=== PATIENT | female | born 1990 | race Two or more races ===

== ENCOUNTER 2018-10-06 05:18 | Emergency (ER) | payer MEDICAID ==
[~2018-10-06] VITALS: Ht 157.5 cm; Wt 79.4 kg
[2018-10-06 06:35] LABS: Urine Bacteria FEW /hpf (None Seen); Urine Blood 1+ /uL (Negative); Urine Specific Gravity 1.027 (1.001-1.035); Urine WBC 11 /hpf (0 - 5)
[2018-10-06 07:32] VITALS: BP 126/76
== END 2018-10-06 07:39 | disposition home or self-care (01) ==
LOC: ER 05:18
DX: O23.43 Unspecified infection of urinary tract in pregnancy, third trimester (principal); O21.2 Late vomiting of pregnancy; Z3A.32 32 weeks gestation of pregnancy
CPT/HCPCS: 81001

== ENCOUNTER 2020-12-12 10:44 | Emergency (ER) | payer MEDICAID ==
[~2020-12-12] VITALS: Ht 157.5 cm; Wt 77.1 kg
[2020-12-12 10:46] VITALS: BP 142/83
== END 2020-12-12 12:18 | disposition home or self-care (01) ==
LOC: ER 10:44
DX: M25.461 Effusion, right knee (principal); W19.XXXA Unspecified fall, initial encounter; Y93.89 Activity, other specified; Y92.89 Other specified places as the place of occurrence of the external cause; Y99.8 Other external cause status
CPT/HCPCS: 73562